=== PATIENT | male | born 1955 | race Caucasian/White ===

== ENCOUNTER 2020-01-03 17:29 | Emergency (ER) | payer MEDICARE, OTHER ==
[~2020-01-03] VITALS: Ht 188 cm; Wt 99.0 kg
[2020-01-03] MEDS ORDERED: DIPH,PERTUSS(ACELL),TET VAC/PF 0.5 ML SYRINGE. VAX IM ONE (18:00)
[2020-01-03] MEDS ORDERED: LIDOCAINE 1%/EPI 1:100,000 20 ML VIAL. IJ ONE (18:00)
[2020-01-03] MEDS ORDERED: IV NORMAL SALINE 50ML 50 ML ONE (18:09)
[2020-01-03] MEDS ORDERED: ceFAZolin SODIUM 1 GM VIAL ONE (18:09)
--- NOTE | 2020-01-03 18:18 | PHYS DOC ---
Past History Past Medical History: CAD, High Cholesterol, Hypertension (JANE LEE APRN) Past Surgical History: Appendectomy, Other (JANE LEE APRN) Alcohol Use: Rarely (JANE LEE APRN) Adult General Chief Complaint Chief Complaint: LACERATION/AVULSION HPI HPI Patient is a 64-year-old male with history of CAD, hypertension, who presents to the ED today with injury to the right hand. Patient states he was trying to push a rebar into a hole, it missed the hole, and it went into his right hand. 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 (JANE LEE APRN) Current Medications Current Medications Current Medications Medications (Trade) Dose Ordered Sig/Sol Start Time Stop Time Status Last Admin Dose Admin Cefazolin Sodium (Ancef) 1 gm STK-MED ONCE 01/03/20 18:09 01/03/20 18:10 DC Cefazolin Sodium 1 gm/Sodium Chloride 50 ml @ 100 mls/hr 1X ONCE 01/03/20 18:00 01/03/20 18:29 Diphtheria/ Pertussis/Tetanus Vacc (ADACEL TDap SYRINGE) 0.5 ml ONCE ONCE 01/03/20 18:00 01/03/20 18:01 DC Lidocaine/ Epinephrine (Xylocaine 1%-Epi 1:100,000) 20 ml 1X ONCE 01/03/20 18:00 01/03/20 18:01 DC Sodium Chloride 50 ml @ As Directed STK-MED ONCE 01/03/20 18:09 01/03/20 18:10 DC (JANE LEE APRN) Allergies Allergies Allergies Coded Allergies Type Severity Reaction Last Updated Verified No Known Drug Allergies 01/03/20 No (JANE LEE APRN) Physical Exam Physical Exam Constitutional: Well developed, well nourished, no acute distress, non-toxic appearance. [] Skin: Right hand webspace between the thumb and index finger with a through and through laceration. Ventral aspect of laceration is 6X3 cm long, dorsal aspect of the laceration is approximately 8X3 cm. There is no obvious tendon involvement. Patient has full range of motion to the right hand and fingers including flexion and extension of all the fingers. Adequate radial, median, ulnar sensation to the right hand and fingers. +2 right radial pulse. Cap refill less than 2 seconds the right fingers. Back: No tenderness, no CVA tenderness. [] Extremities: No tenderness, no cyanosis, no clubbing, ROM intact, no edema. [] Neurologic: Alert and oriented X 3, normal motor function, normal sensory functi on, no focal deficits noted. [] Psychologic: Affect normal, judgement normal, mood normal. [] (JANE LEE APRN) Current Patient Data Vital Signs Vital Signs Date Time Temp Pulse Resp B/P (MAP) Pulse Ox O2 Delivery O2 Flow Rate FiO2 01/03/20 17:40 97.2 95 18 140/85 (103) 96 Room Air (JANE LEE APRN) EKG EKG [] (JANE LEE APRN) Radiology/Procedures Radiology/Procedures []PROCEDURE: HAND RIGHT 3V Exam: Right hand 3 views INDICATION: Injury between first and second digit TECHNIQUE: Frontal, lateral and oblique views of the right hand Comparisons: None FINDINGS: Soft tissue irregularity at the thenar compartment of the hand. There are at least 5 tiny 1 mm radiopaque foreign bodies noted within the soft tissues. Bone mineralization is normal. No acute or healed fractures. Joint spaces are well-maintained. IMPRESSION: Laceration at the thenar compartment with a few tiny radiodense foreign bodies at the site of laceration. Correlate with physical exam. Electronically signed by: Nadja Toussaint MD (01/03/2020 6:31 PM) [facility] DICTATED AND SIGNED BY: NADJA TOUSSAINT MD DATE: 01/03/201830 CC: JAYA GONZALEZ MD; JANE LEE APRN; QUYEN BROOKS DO ~ Laceration/Wound Repair Wound Location: right hand Wound's Depth, Shape: dorsal hand vertical orientation ventral hand and dorsal hand vertical orientation. Dorsal hand lac. is approx 6 cm, ventral hand laceration approx. 8 X3cm Wound Explored: clean Irrigated w/ Saline (ccs): 1000 Betadine Prep?: Y Anesthesia: 1% of lidocaine Volume Anesthetic (ccs): Approximately 80 cc total Wound Repaired With: In a laceration was repaired with 3 interrupted sutures using 3.0 Vicryl, and also hand laceration was repaired with 13 interrupted sutures using 4.0 Ethilon, ventral hand laceration was repaired with 17 interr upted sutures using 4.0 Ethilon. Wounds were covered with nonstick dressing (JANE LEE APRN) Heart Score Risk Factors: Risk Factors: DM, Current or recent (<one month) smoker, HTN, HLP, family history of CAD, obesity. Risk Scores: Risk Factors: DM, Current or recent (<one month) smoker, HTN, HLP, family history of CAD, obesity. (JANE LEE APRN) Course & Med Decision Making Course & Med Decision Making Pertinent Labs and Imaging studies reviewed. (See chart for details) This is a 64-year-old male patient presented to the ED today with right hand laceration from an injury. See HPI. Tetanus is updated, he was given cefazolin in the ED IV. (JAEN LEE APRN) Course & Med Decision Making Patient was seen and examined by me as well. Patient had full range of motion to the affected right hand. I personally reviewed the x-rays and there is no evidence of fracture or dislocation. Although it was a through and through injury it was through the webspace of the hand. We were able to successfully close the wound. The wound was thoroughly flushed before closure. Patient was given a gram of Ancef as well prescription for cephalexin. He was advised not to use his hand until cleared by his doctor or hand surgeon. Patient was placed in a thumb spica splint to protect the laceration site before discharge. Patient neurovascularly intact before and after the repair was complete. There is no obvious tendon injury (QUYEN BROOKS DO) Dragon Disclaimer Dragon Disclaimer This electronic medical record was generated, in whole or in part, using a voice recognition dictation system. (JANE LEE APRN) Departure Departure: Impression: Primary Impression: Laceration of right hand Disposition: 01 DC HOME SELF CARE/HOMELESS Condition: STABLE Referrals: JAYA GONZALEZ MD (PCP) Follow-up with a hand surgeon of your choice in 1 to 2 weeks. Ensure they remove the stitches in 7 to 10 days Patient Instructions: Laceration Care, Adult, [id number] Additional Instructions: You have right hand laceration that was closed with stitches. Keep the area clean and dry. You can shower and wash the area with normal soap and water once a day. Apply Neosporin to the area twice a day. Take the prescribed antibiotics until completed. Remove the dressing in 24 hours, you can leave the area open to air if it is not draining or bleeding. Monitor the area for any signs of infection include increased redness, warmth, yellow drainage from the area and return to the ED record. Have the sutures removed in 7 to 10 days. Scripts Cephalexin (CEPHALEXIN) 500 Mg Tablet 1 TAB PO TID, #30 TAB Prov: JANE LEE APRN 01/03/20 Problem Qualifiers Primary Impression: Laceration of right hand Encounter type: initial encounter Foreign body presence: without foreign body Qualified Codes: S61.411A - Laceration without foreign body of right hand, initial encounter JANE LEE APRN Jan 03, 2020 18:18 QUYEN BROOKS DO Jan 03, 2020 20:32
--- NOTE | 2020-01-03 18:34 | RAD ---
Exam: Right hand 3 views INDICATION: Injury between first and second digit TECHNIQUE: Frontal, lateral and oblique views of the right hand Comparisons: None FINDINGS: Soft tissue irregularity at the thenar compartment of the hand. There are at least 5 tiny 1 mm radiopaque foreign bodies noted within the soft tissues. Bone mineralization is normal. No acute or healed fractures. Joint spaces are well-maintained. IMPRESSION: Laceration at the thenar compartment with a few tiny radiodense foreign bodies at the site of laceration. Correlate with physical exam. Electronically signed by: Nadja Ly MD (01/03/2020 6:31 PM) [facility]
[2020-01-03] MEDS ORDERED: CEPH500T PO (20:29)
[2020-01-03 20:45] VITALS: BP 138/86
== END 2020-01-03 20:45 | disposition home or self-care (01) ==
LOC: ER 17:29
DX: S61.411A Laceration without foreign body of right hand, initial encounter (principal); I25.10 Atherosclerotic heart disease of native coronary artery without angina pectoris; E78.00 Pure hypercholesterolemia, unspecified; I10 Essential (primary) hypertension; W22.8XXA Striking against or struck by other objects, initial encounter; Y93.89 Activity, other specified; Y92.89 Other specified places as the place of occurrence of the external cause; Y99.8 Other external cause status
CPT/HCPCS: 12005; 73130; 90471; 90715; 96365; 99284; J0690